=== PATIENT | male | born 1970 | race Native Hawaiian/Other Pacific Islander ===

== ENCOUNTER 2020-12-13 13:42 | Outpatient (CLI) | payer BC | END 2020-12-13 16:00 | disposition home or self-care (01) | LOC: RAD 13:42 | PROVIDERS: ATTEND Physician Assistant | DX: M25.551 Pain in right hip (principal); M25.552 Pain in left hip ==

== ENCOUNTER 2021-03-01 14:06 | Outpatient (CLI) | payer BC | END 2021-03-01 20:43 | disposition home or self-care (01) | LOC: RAD 14:06 | PROVIDERS: ATTEND Orthopaedic Surgery | DX: M25.552 Pain in left hip (principal) ==